=== PATIENT | male | born 1930 | race Caucasian/White ===

== ENCOUNTER 2016-10-20 11:52 | Emergency (ER) | payer MEDICARE, BC ==
--- NOTE | ~2016-10-20 | HP ---
History And Physical [id number] [place]. [address] NAME: GAUDENCIO RUSSO : 34 STATUS : ADM IN [facility]#: [id number] AGE: 86 ADM/REG DATE : 10/20/16 MR#: [id number] REPORT SERV DATE: 10/20/16 DICTATED BY: YENNIFER TRINIDAD DATE: 10/20/16 REPORT STATUS : Draft TRANSCRIBED BY: MODL DATE: 10/20/16 DATE OF ADMISSION: 10/20/2016 CARDIOLOGY ADMISSION HISTORY AND PHYSICAL IDENTIFYING DATA: The patient is an 86-year-old man, who is a patient of Dr. Michael Joiner. The patient has a history of coronary heart disease, status post coronary artery bypass grafting surgery in approximately the year 2007. CHIEF COMPLAINT: Dizziness and near-syncope of two days duration with several days of bilateral right greater than left lower extremity edema. HISTORY OF PRESENT ILLNESS: Mr. Russo is a pleasant 86-year-old man who was in his usual state of health until about two days ago. He has had some lower extremity edema prior to that time, but reports that his chief complaint of dizziness began only about two days ago. The patient describes darkening of his vision and a feeling as if he is going to pass out. This is provoked by standing or rising from a lying or seated position. The patient denies any chest pain, dyspnea, orthopnea, or paroxysmal nocturnal dyspnea. He does report that his lower extremities have been swelling for several days. The patient was recently seen by Dr. Joiner on 10/16/2016. He was not complaining of dizziness at that time. The patient had basic labs and a carotid duplex ultrasound ordered at that time. He is yet to complete the carotid duplex, but his basic lab workup was unremarkable. The patient is on metoprolol at home and has no previous history of bradyarrhythmia or heart block. PAST MEDICAL HISTORY: 1. Coronary artery disease, status post coronary artery bypass grafting. 2. Carotid stenosis with 70% disease of the right carotid bulb. 3. Hypertension. 4. Dyslipidemia. 5. Chronic diastolic heart failure. 6. Impaired glucose tolerance. PAST SURGICAL HISTORY: Significant for: 1. Coronary artery bypass grafting surgery as noted above. 2. Cholecystectomy. 3. History of pancreatic duct stent performed in [place], [place]. FAMILY HISTORY: Negative for early coronary heart disease or sudden cardiac . SOCIAL HISTORY: No significant history of tobacco, alcohol, or drug use. The patient is with two children. ALLERGIES: THE PATIENT HAS NO KNOWN MEDICATION ALLERGIES. HOME MEDICATIONS: 1. Aspirin 81 mg p.o. daily. History And Physical [address] [address] NAME: GAUDENCIO RUSSO : 34 STATUS : ADM IN PAT#: [id number] AGE: 86 ADM/REG DATE : 10/20/16 MR#: [id number] REPORT SERV DATE: 10/20/16 DICTATED BY: YENNIFER TRINIDAD DATE: 10/20/16 REPORT STATUS : Draft TRANSCRIBED BY: ERLINDA DATE: 10/20/16 2. Benazepril 40 mg p.o. daily. 3. Fish oil supplement 1 g daily. 4. Metoprolol succinate 100 mg p.o. daily. 5. Ocuvite vitamins two times daily. 6. Pantoprazole 40 mg p.o. daily. 7. Pravastatin 40 mg p.o. q.h.s. 8. Primidone 50 mg p.o. twice daily. 9. Probiotic supplement daily. 10.Vitamin C 500 mg p.o. daily. 11.Vitamin D 2000 units p.o. daily. REVIEW OF SYSTEMS: A complete 12-system review was performed. This is noncontributory except for the pertinent positives and negatives noted in the history of present illness above. PHYSICAL EXAMINATION: VITAL SIGNS: VITAL SIGNS: Temperature is 97.4 degrees Fahrenheit, heart rate is variable between 40 and 50 beats per minute, and currently approximately 45 beats per minute, respirations 16, blood pressure is 130/60 mmHg. GENERAL: The patient is an overweight elderly white man, who is fatigued appearing, but awake, alert, oriented, and in no acute distress. EYES: PERRL, EOMI, clear conjunctiva. HEAD/MNT: NCAT with moist mucous membranes and grossly normal hard and soft palate. NECK: Supple with no obvious thyromegaly or lymphadenopathy CARDIOVASCULAR: There is a regular rhythm with a bradycardia noted. There is a normal S1 and a slightly diminished aortic component of the second heart sound. There is a grade 3/6 mid-peaking systolic murmur heard at the right upper sternal border with radiation to the sternal notch. The carotid upstroke is normal. The jugular venous pressure appears normal. PULMONARY: Clear to auscultation bilaterally with no wheezing, rales, rhonchi, or dullness to percussion. ABDOMINAL: Soft, non-tender, non-distended with no hepatosplenomegaly noted. EXTREMITIES: There is trace to 1+ ankle edema bilaterally with no clubbing or cyanosis is noted. MUSCULOSKELETAL: Grossly normal strength and range of motion in all extremities INTEGUMENTARY: Skin appears intact with no bruises, wounds or active lesions noted NEURO/PSYC: Alert and oriented x3, with no dysarthria, facial droop or lateralizing weakness noted. 12-LEAD EKG: This showed sinus bradycardia with a rate of 49 beats per minute. There are moderate voltage criteria for LVH without any other significant abnormality. LABORATORY: Sodium is 141, potassium 4.1, chloride is 103, BUN is 18, creatinine is 1.13, glucose is 106, calcium 8.9, magnesium 2.2. Cell count show a white blood cell count of 5.9, hemoglobin 13.6, and platelets of 106. Troponin I is less than 0.02. Thyroid function panel is pending at this time. History And Physical [address] [address] NAME: GAUDENCIO RUSSO : 34 STATUS : ADM IN [facility]#: [id number] AGE: 86 ADM/REG DATE : 10/20/16 MR#: [id number] REPORT SERV DATE: 10/20/16 DICTATED BY: YENNIFER TRINIDAD DATE: 10/20/16 REPORT STATUS : Draft TRANSCRIBED BY: ERLINDA DATE: 10/20/16 ASSESSMENT AND PLAN: 1. Near-syncope/symptomatic bradycardia: At this time, the patient appears to have symptomatic bradycardia. He is on metoprolol at home, and this will be withheld. The patient did not take his morning dose. I will also check a thyroid function panel. If the patient's bradycardia improves with withdrawal of his beta mari, and the patient has improvement in his symptoms, conservative management may be warranted. If the patient has no significant improvement in his symptoms and heart rate, and if his thyroid function panel is unremarkable, it may be necessary to consider dual-chamber pacemaker placement. We will defer to Dr. Joiner as to whether a workup for ischemia should be pursued prior to referral for pacemaker implantation. The patient will be made n.p.o. past midnight in case procedures are required tomorrow morning. 2. Hypertension: We will continue benazepril and consider p.r.n. hydralazine. 3. Coronary artery disease: Continue aspirin and pravastatin. Given the patient's advanced age, the benefits of high potency statin therapy or unproven. We will otherwise continue the patient's regular medication regimen. He does not appear to have an absolute indication for treatment with the beta mari. [facility] Yennifer Trinidad MD / [id number] CC: MD Jack Witt M.D.
[2016-10-20 10:00] LABS: BASOPHILS 0.5 %; BASOPHILS ABSOLUTE 0.03 10/3/uL (0.0-0.16); EOSINOPHILS 0.8 %; EOSINOPHILS ABSOLUTE 0.05 10/3/uL (0.0-0.53); ER CBC TAT 0 Hrs 12 Mins; HEMATOCRIT 38.6 % (40.0-51.0); HEMOGLOBIN 13.6 g/dL (13.6-17.8); IMMATURE GRANULOCYTES 0.3 %; IMMATURE GRANULOCYTES ABSOLUTE 0.02 10/3/uL (0.0-0.11); LYMPHOCYTES 26.3 %; LYMPHOCYTES ABSOLUTE 1.56 10/3/uL (0.67-4.30); MEAN CORPUS HGB CONC 35.2 g/dL (32.0-36.0); MEAN CORPUSCULAR HEMOGLOB 32.4 pg (26.0-34.0); MEAN CORPUSCULAR VOLUME 91.9 fL (80-100); MEAN PLATELET VOLUME 11.6 fL (9.2-13.0); MONOCYTES 6.7 %; NEUTROPHILS 65.4 %; NEUTROPHILS ABSOLUTE 3.88 10/3/uL (2.02-8.40); PLATELET COUNT 106 10/3/uL (150-400); RBC DISTRIBUTION WIDTH 13.2 % (12.0-16.0); WHITE BLOOD CELLS 5.9 10/3/uL (4.5-10.5)
[2016-10-20 10:01] LABS: MANUAL DIFF NO %
[2016-10-20 10:02] LABS: INTERNATIONAL NORMAL RATI 1.1 UNITS (-); PROTIME (NOT ORD) 13.6 SEC (12.0-14.5)
[2016-10-20 10:09] LABS: BUN (BLOOD UREA NITROGEN) 18 MG/DL (6-23); CALCIUM, SERUM 8.9 MG/DL (8.5-10.4); CHEST PAIN PROFILE TAT 0 Hrs 21 Mins; CHLORIDE, SERUM 103 MMOL/L (96-112); CO2 (CARBON DIOXIDE) 28 MMOL/L (24-34); CREATININE 1.13 MG/DL (0.70-1.30); GFR AFRICAN AMERICAN 69 ML/MIN (>=60); GFR NON AFRICAN AMERICAN 59 ML/MIN (>=60); POTASSIUM, SERUM 4.1 MMOL/L (3.5-5.3); SODIUM, SERUM 141 MMOL/L (135-148); TROPONIN I <0.02 NG/ML (<0.05)
[2016-10-20 10:10] LABS: GLUCOSE, SERUM 106 MG/DL (60-99)
[~2016-10-20 11:52] MED LIST: ASAB PO; LOTE20 PO; OCUVITE PO; PRAVACHOL40 MG PO; TOPXL100 PO
[2016-10-20] MEDS ORDERED: ASAB PO (15:11)
[2016-10-20] MEDS ORDERED: FISH-EPA1000 MG PO (15:12)
[2016-10-20] MEDS ORDERED: OCUVITE PO (15:12)
[2016-10-20] MEDS ORDERED: LOTE40 PO (15:12)
[2016-10-20] MEDS ORDERED: PROTONIX PO (15:12)
[2016-10-20] MEDS ORDERED: TOPXL100 PO (15:12)
[2016-10-20] MEDS ORDERED: PRAVACHOL40 MG PO (15:13)
[2016-10-20] MEDS ORDERED: PRIM50B PO (15:13)
[2016-10-20] MEDS ORDERED: DEMA20 PO (15:14)
[2016-10-20] MEDS ORDERED: VITAMIN D31000 UNIT PO (15:14)
[2016-10-20] MEDS ORDERED: VITC500 PO (15:14)
[2016-10-20] MEDS ORDERED: GENTEA2 OPH (15:15)
[2016-10-20] MEDS ORDERED: MIRALAX POWDER1 PKT PO (15:16)
[2016-10-20] MEDS ORDERED: ASPERCREME TOP (15:16)
[2016-10-20 16:28] LABS: FREE T4 1.11 NG/DL (0.76-1.46); ULTRASENSITIVE TSH 0.791 MCIU/ML (0.358-3.740)
[2017-02-11] MEDS ORDERED: FISH-EPA1000 MG PO (09:59)
[2017-02-11] MEDS ORDERED: OCUVITE PO (09:59)
[2017-02-11] MEDS ORDERED: PROBIOTIC PO (10:01)
[2017-02-11] MEDS ORDERED: GENTEAL OPH (10:02)
[2017-02-11] MEDS ORDERED: DEMA20 PO (10:28)
== END 2016-10-21 15:44 | disposition home or self-care (01) ==
LOC: ER 11:52
PROVIDERS: Emergency Medicine
DX: R00.1 Bradycardia, unspecified (principal); I10 Essential (primary) hypertension
CPT/HCPCS: 71010; 80048; 83735; 84439; 84443; 84484; 85025; 85610; 85730; 93005; 93880; 93971; 99291; A9270-GY